=== PATIENT | female | born 1985 ===

== ENCOUNTER 2020-03-12 07:12 | Inpatient (IN) | payer BC ==
[2020-03-12 07:35] VITALS: BMI 27.8
[2020-03-12 08:11] LABS: Amnisure Test RUPTURE DETECTED (No Rupture)
[2020-03-12 08:12] LABS: Amnisure Internal Control QC ACCEPTABLE (ACCEPTABLE)
[2020-03-12] MEDS: Lactated Ringer's 1,000 ML IV SCH ×2 (09:09→10:50)
[2020-03-12] MEDS ORDERED: Ondansetron PF 4 MG/2 ML Vial IVP PRN ×2 (09:14→14:20)
[2020-03-12] MEDS ORDERED: hydrALAZINE 20 MG/ML VIAL SLOW IVP PRN ×2 (09:14→14:20)
[2020-03-12] MEDS ORDERED: Butorphanol Tartrate 1 MG/ML VIAL SLOW IVP PRN (09:14)
[2020-03-12] MEDS ORDERED: Lidocaine 1% (PF) 30 ML VIAL SC PRN (09:14)
[2020-03-12] MEDS ORDERED: HYDROcodone/Acetaminophen 5/325 mg Tablet PO PRN ×4 (09:14→14:20)
[2020-03-12] MEDS ORDERED: NS / Oxytocin 40 units/1000ml 1,000 ML IV PRN (09:14)
[2020-03-12] MEDS ORDERED: Ibuprofen 800 MG TAB PO PRN (09:14)
[2020-03-12] MEDS ORDERED: Promethazine HCl 25 MG/ML VIAL IM PRN (09:14)
[2020-03-12] MEDS ORDERED: NS w/ Oxytocin 10 units 500 ML IV SCH ×2 (09:15)
--- NOTE | 2020-03-12 09:33 | PDOC.LDHP ---
Labor and Delivery H&P Chief complaint: contractions, loss of fluid HPI: Pt is a @ 39.5 w regular ctx and LOF. Current gestational age (weeks): 39 Due date: 03/14/20 Dating criteria: last menstrual period, first trimester ultrasound Grav: 2 Para: 1 Current complications: none Abnormal US findings: No Current medications: pre-sheri vitamins Previous surgical history: cholecystectomy, other (knee) Allergies/Adverse Reactions: Allergies Allergy/AdvReac Type Severity Reaction Status Date / Time No Known Allergies Allergy Verified 03/12/20 07:27 Social history: none - Physical Exam Vital signs reviewed and normal: yes General: NAD, breathing through contractions Heart: RRR Lungs: CTAB Abdomen: gravid Extremeties: no edema FHT: category 1 - Vaginal Exam cm dilated: 4 Effacement: 75% Station: -1 - OB Labs Blood type: O RH: positive Antibody Screen: negative HIV: negative RPR: negative HEPSAg: negative 1 hour GCT: negative GBS: negative Rubella: immune - Assessment L&D Assessment: term rupture in membranes - Plan Plan: admit to L&D, labor augmentation if indicated, informed consent obtained, anesthesia consult for pain management -: A/P: 39.5 weeks with SROM/active labor, FHT reassuring, admit and anesthesia consult planned.
[2020-03-12 09:39] LABS: Hemoglobin 11.7 g/dL (12.0-16.0); Mean Corpuscular HGB CONC 33.6 g/dL (32.0-36.0); Mean Corpuscular Hemoglobin 30.9 pg (27.0-31.0); Mean Corpuscular Volume 91.9 fL (78.0-98.0); Mean Platelet Volume 9.3 fL (7.4-10.4); Platelet Count 184 thou/uL (130-400); RBC Distribution Width 11.9 % (11.5-14.5); Red Blood Cell (RBC) Count 3.78 mill/uL (4.20-5.40)
[2020-03-12] MEDS ORDERED: Fentanyl 4 mcg/Bup 0.1% Cadd 100 ML ONE (09:59)
[2020-03-12 10:07] LABS: Syphilis Antibody Nonreactive (Nonreactive); Syphilis Antibody Index 0.02 S/CO (<1.00 Non-Reactive)
[2020-03-12] MEDS ORDERED: Fentanyl 100 MCG/2 ML VIAL ONE (10:33)
[2020-03-12] MEDS ORDERED: Bupivacaine 0.25% HCL 30 ML VIAL ONE (11:26)
[2020-03-12] MEDS ORDERED: Lidocaine 1% (PF) 30 ML VIAL ONE (12:40)
[2020-03-12] MEDS ORDERED: NS / Oxytocin 40 units/1000ml 1,000 ML ONE (12:40)
[2020-03-12 12:51] LABS: HBSAg Index 0.15 S/CO (0-0.99); Hep B Surf Ag Non-Reactive S/CO (NonReactive)
--- NOTE | 2020-03-12 13:25 | PDOC.OPDEL ---
OB Operative/Delivery Note Delivery Dr/Surgeon: Jermaine Pre-Delivery Diagnosis: active labor Procedure/Post Delivery Dx: spontaneous vaginal delivery Weeks gestation: 39 - Findings A Sex: female - 1 min: 8 - 5 min: 9 - Additional Findings/Plan Placenta delivered: spontaneous Repaired Obstetrical Laceration: 2nd degree Estimated blood loss: 100ml Post delivery plan: routine recovery
[2020-03-12] MEDS ORDERED: Adacel (T-DAP) 0.5 ML SYRINGE IM ONE (14:20)
[2020-03-12] MEDS ORDERED: Lanolin Ointment 7 GM TUBE TOP PRN (14:20)
[2020-03-12] MEDS ORDERED: Preparation H Ointment 28 GM TUBE PR PRN (14:20)
[2020-03-12] MEDS ORDERED: diphenhydrAMINE 25 MG CAP PO PRN (14:20)
[2020-03-12] MEDS ORDERED: NS / Oxytocin 40 units/1000ml 1,000 ML IV SCH (14:20)
[2020-03-12] MEDS ORDERED: Milk Of Magnesia 30 ML UDCUP PO PRN (14:20)
[2020-03-12] MEDS ORDERED: Benzocaine-Menthol 82.5 ML CAN TOP PRN (14:20)
[2020-03-12] MEDS ORDERED: Bisacodyl 10 MG SUPP PR PRN (14:20)
[2020-03-12] MEDS: Ibuprofen 800 MG TAB PO SCH ×2 (15:13→21:34)
[2020-03-12] MEDS: Ferrous Sulfate 325 MG TAB PO SCH (18:04)
[2020-03-12] MEDS: Docusate Calcium (SURFAK) 240 MG CAP PO SCH (21:34)
[2020-03-13] MEDS: Ibuprofen 800 MG TAB PO SCH ×2 (05:55→14:32)
[2020-03-13] MEDS: Docusate Calcium (SURFAK) 240 MG CAP PO SCH (08:36)
[2020-03-13] MEDS: Ferrous Sulfate 325 MG TAB PO SCH (08:38)
[2020-03-13] MEDS ORDERED: Prenatal Vitamin 1 TAB PO SCH (09:00)
[2020-03-13 10:56] VITALS: BP 123/73; TEMP 98.2
--- NOTE | 2020-03-13 11:33 | PDOC.PP ---
Post Progress Note Post Day #: 1 Subjective: doing well, nursing well, minimal discomfort and normal lochia PO intake tolerated: yes Flatus: yes Ambulation: yes Vital Signs (12 hours) Temp Pulse Resp BP Pulse Ox 03/13/20 10:55 98.2 F 65 20 123/73 03/13/20 08:02 98.5 F 59 L 20 123/64 98 03/13/20 05:45 98.7 F 66 16 138/67 Weight Weight 152 lb - Physical Examination General: NAD Respiratory: non-labored breathing Abdominal: no distention Skin: no rash Psychiatric: A&Ox3, normal affect Result Diagrams: 03/12/20 09:20 Additional Labs: Post Labs Blood Type O POSITIVE 03/12/20 09:34 Hep Bs Antigen Non-Reactive S/CO (NonReactive) 03/12/20 09:20 (1) 39 weeks gestation of Code(s): Z3A.39 - 39 WEEKS GESTATION OF Status: Acute (2) Vaginal delivery Code(s): O80 - ENCOUNTER FOR FULL-TERM UNCOMPLICATED DELIVERY Status: Acute - Assessment/Plan PPD1 doing well, plan for DC today if baby DC.
== END 2020-03-13 17:20 | disposition home or self-care (01) | DRG 807 ==
LOC: L&D/OP 07:12 → L&D 08:37 → L&D/OP 10:42 → L&D 10:42 → 3SE 15:37
PROVIDERS: ADMIT Obstetrics & Gynecology; ATTEND Obstetrics & Gynecology
PROC: 10E0XZZ Delivery of Products of Conception, External Approach (ICD-10-PCS; principal; 2020-03-12)
PROC: 0KQM0ZZ Repair Perineum Muscle, Open Approach (ICD-10-PCS; 2020-03-12)
DX: O70.1 Second degree perineal laceration during delivery (principal); Z37.0 Single live birth; Z3A.39 39 weeks gestation of pregnancy
CPT/HCPCS: 36415; 51702; 84112; 85027; 86780; 86850; 86900; 86901; 87340; 99285; J2001; J2590; J3010; S0020